=== PATIENT | male | born 1945 | race Caucasian/White ===

== ENCOUNTER 2016-08-22 20:10 | Emergency (ER) | payer MEDICARE, OTHER ==
[~2016-08-22] VITALS: Ht 177.8 cm; Wt 72.3 kg
--- OUTSIDE RECORDS SUMMARY | 2016-08-22 20:15 | XMS REPORT | Summary of Care ---
Author Author Sim Beck M.D. Organization Unknown Address Unknown Phone Unavailable Care Team Providers Care Art Objects Supervisor Name Role Phone Sim Beck M.D. Unavailable Unavailable Charo Noyola M.D. Unavailable Unavailable Sim Beck Unavailable Unavailable Functional Status Name Dates Details Functional status health issues are not documented Status: Name Dates Details Cognitive status health issues are not documented Status: Problems Name Dates Details Hearing loss (389.9, H91.90) Status: Active Xerostomia (527.7, K11.7) Status: Active RBBB (right bundle branch block) (426.4, I45.10) Status: Active DDD (degenerative disc disease) (722.6) Status: Active Asthma (493.90, J45.909) Status: Active High cholesterol (272.0, E78.00) Status: Active HTN (hypertension) (401.9, I10) Status: Active Shoulder pain, acute (719.41, M25.519) Status: Active Medications Name Dates Details Fluocinolone Acetonide 0.01 % External Solution 4 gtts to the affected ear every sunday and sunday Quantity: 1 Refills: 0 Simone Noyola M.D. Start 20-Mar-2008 Active Proventil HFA 108 (90 Base) MCG/ACT Inhalation Aerosol Solution INHALE 2 PUFFS EVERY 4-6 HOURS NEEDED. Refills: 0 Sim Beck M.D. Start Active Aspir-Low 81 MG Oral Tablet Delayed Release TAKE 1 TABLET DAILY. Refills: 0 Sim Beck M.D. Start Active Crestor 10 MG Oral Tablet 1/2 tablet twice weekly Refills: 0 Sim Beck M.D. Start 31-Jan-2016 Active Allergies and Adverse Reactions Name Dates Details Septra TABS (Allergy) Status: Active Statins (Allergy) Status: Active Viagra (Allergy) Status: Active Past Medical History Name Dates Details Upper respiratory infection (465.9, J06.9) Status: Auto Complete History of myocardial infarction (412, I25.2) Status: Resolved Procedures Procedure Dates Details Procedures not documented Immunization Name Dates Details Fluzone High-Dose 0.5 ML Intramuscular Suspension Prefilled Syringe on: 22-Feb-2016 Social History Name Dates Details - Status: Name Dates Details Never smoker Vital Signs Date Test Result Details 05-Jul-2016 09:33 BP Systolic 122 mm[Hg] Status: Comments: Location: ; Position: BP Diastolic 68 mm[Hg] Status: Comments: Location: ; Position: Heart Rate 60 /min Status: Comments: Location: ; Weight 164 lb Status: Physical Findings 98 Status: Comments: O2 Saturation Body Mass Index Calculated 22.87 kg/m2 Status: Body Surface Area Calculated 1.94 m2 Status: Results Date Description Value Details Results not documented Plan of Care Name Dates Details Planned Observations Planned Goals not documented Planned Encounters Appointment; Provider: Sim Beck M.D. On 02-Aug-2016 08:30 Instructions Name Dates Details Instructions not documented Encounters Appointment; Sim Beck M.D. Encounter Diagnosis: Problem not documented On 31-Jan-2016 08:30 Appointment; Sim Beck M.D. Encounter Diagnosis: Problem not documented On 09:55
[2016-08-22] MEDS ORDERED: ERGO2000 PO (20:42)
[2016-08-22] MEDS ORDERED: ALBU8.5H2 IH (20:42)
[2016-08-22] MEDS ORDERED: ASPI-860 PO (20:42)
[2016-08-22] MEDS ORDERED: NF-CRES10T PO (20:42)
[2016-08-22] MEDS ORDERED: MOME220A2 IH (20:42)
--- NOTE | 2016-08-22 21:15 | NUR ---
Pt's came out and said that pt is having some more difficulty breathing, checked on pt, he stated that he feels more tightness in his chest, and its more difficult to get his breath, pt does not appear to be in distress, sats 95%, on RA. DR. Paulino notified, as well as RT called to come and see pt as well
[2016-08-22] MEDS ORDERED: methylPREDNISolone 125 MG (Solu-MEDROL) VIAL IV ONE (21:30)
[2016-08-22] MEDS ORDERED: ALBUTEROL/IPRATROPIUM 3MG-0.5MG/3ML (DUONEB) NEB VIAL INH ONE (21:30)
[2016-08-22 22:04] LABS: BASOPHILS % (AUTO) 0 % (0-2); EOSINOPHILS # (AUTO) 0.5 10^3uL; EOSINOPHILS % (AUTO) 6 % (0-4); LYMPHOCYTES # (AUTO) 1.8 X10^3; MEAN CORPUSCULAR HEMOGLOBIN 30.7 PG (26.0-34.0); MEAN CORPUSCULAR VOLUME 87 FL (80-100); MEAN PLATELET VOLUME 10.5 FL (6.0-9.5); MONOCYTES # (AUTO) 0.9 X10^3; MONOCYTES % (AUTO) 11 % (3-11); NEUTROPHILS # (AUTO) 5.2 X10^3; NEUTROPHILS % (AUTO) 62 % (51-67); PLATELET COUNT 201 10^3uL (150-450); WHITE BLOOD COUNT 8.41 10^3uL (4.0-11.0)
[2016-08-22 22:17] LABS: MEAN CORPUSCULAR HGB CONC 35.5 g/dL (31.0-37.0)
[2016-08-22 22:26] LABS: ALBUMIN 4.2 g/dL (3.4-5.0); ALKALINE PHOSPHATASE 90 U/L (38-126); ANION GAP 16.2 MEQ/L (3-15); BUN/CREATININE RATIO 15 (10-20); CALCULATED IONIZED CALCIUM 3.9 mg/dL (3.8-4.6); TOTAL PROTEIN 7.3 g/dL (6.4-8.5)
--- NOTE | 2016-08-22 22:30 | NUR ---
Rounded on pt, he appears to be comfortable at this time, no complaints states that the breathing treatment did help a lot
[2016-08-23 01:03] VITALS: BP 157/87
--- NOTE | 2016-08-23 08:17 | Diagnostic Imaging Report ---
CHEST PA/LAT (2 VIEW)* Indication: Cough Comparison: None available. Findings: No focal pneumonic consolidation, pleural effusion or pneumothorax. Normal heart size and pulmonary vasculature. Impression: No acute cardiopulmonary process. Dictated by: Dictated on workstation # [id number]
== END 2016-08-23 00:50 | disposition home or self-care (01) ==
LOC: ED 20:19
DX: J30.2 Other seasonal allergic rhinitis (principal); R06.02 Shortness of breath; R07.89 Other chest pain
CPT/HCPCS: 36415; 71020; 80053; 83880; 84484; 85025; 86140; 86738; 87486; 87581; 87633; 87798; 93005; 94640; 96361; 96374; 99283; J2930; J7030; 93010; 99284

== ENCOUNTER 2016-08-26 17:12 | Emergency (ER) | payer MEDICARE, OTHER ==
[~2016-08-26] VITALS: Ht 177.8 cm; Wt 68.9 kg
[~2016-08-26 17:12] MED LIST: ALBU8.5H2 IH; ASPI-860 PO; ERGO2000 PO; MOME220A2 IH; NF-CRES10T PO
[2016-08-26] MEDS ORDERED: ALBUTEROL 0.083% NEB SOLUTION 2.5 MG/3 ML VIAL INH ONE (17:40)
[2016-08-26] MEDS ORDERED: predniSONE 20 MG (DELTASONE) TABLET PO ONE (18:30)
[2016-08-26] MEDS ORDERED: ALB0.5V INH (18:34)
[2016-08-26] MEDS ORDERED: NEBU1KIT17 MC (18:34)
[2016-08-26] MEDS ORDERED: PRED20TA PO (18:34)
[2016-08-26 18:56] VITALS: BP 135/84
--- NOTE | 2016-08-27 07:54 | Diagnostic Imaging Report ---
INDICATION: Shortness of breath. COMPARISON: 08/22/2016. FINDINGS: Stable hyperaerated lung volume. Biapical subpleural scarring is similar. No focal airspace disease. No pleural effusion or pneumothorax. Normal cardiomediastinal silhouette. Unchanged intradiscal calcification in the lower thoracic spine. IMPRESSION: 1. No acute cardiopulmonary process. Dictated by: Dictated on workstation # [id number]
--- NOTE | 2016-08-27 10:43 | NUR ---
LATE ENTRY ON 27 AUGUST 2016: [facility] Pharmacist has called to clarify order for the Albuterol Nebulizer Solution. Pt's chart pulled for Dr. Lindsay Nava (on-duty ED physician) to review. Dr. Nava changes order to the 2.5 mg/ 3 ml solution. This order relayed to [facility] Pharmacist who verbalizes understanding and denies further questions.
== END 2016-08-26 18:46 | disposition home or self-care (01) ==
LOC: ED 17:13
DX: J20.9 Acute bronchitis, unspecified (principal); B96.0 Mycoplasma pneumoniae [M. pneumoniae] as the cause of diseases classified elsewhere
CPT/HCPCS: 71020; 94640; 99282; A9270; J7613; 99283

== ENCOUNTER 2016-09-18 03:30 | Emergency (ER) | payer MEDICARE, OTHER ==
[~2016-09-18] VITALS: Ht 177.8 cm; Wt 70.6 kg
[~2016-09-18 03:30] MED LIST changes: +ALB0.5V INH; +NEBU1KIT17 MC; +PRED20TA PO
[2016-09-18] MEDS ORDERED: NF-CRES10T PO (03:50)
--- NOTE | 2016-09-18 03:52 | NUR ---
DID USE NETI POT LAST NIGHT FOR SINUS AND TOOK CLARITAN
[2016-09-18] MEDS ORDERED: methylPREDNISolone 125 MG (Solu-MEDROL) VIAL IV ONE (04:00)
[2016-09-18] MEDS ORDERED: ALBUTEROL/IPRATROPIUM 3MG-0.5MG/3ML (DUONEB) NEB VIAL INH ONE (04:00)
[2016-09-18] MEDS ORDERED: ONDANSETRON 2 MG/ML (Z0FRAN) 2 ML VIAL IV ONE (04:00)
[2016-09-18] MEDS ORDERED: HYDROmorphone 1 MG/ML (DILAUDID) SYRINGE IV ONE (04:00)
[2016-09-18] MEDS ORDERED: SODIUM CHLORIDE FLUSH 10 ML SYR IV PRN (04:15)
[2016-09-18 04:36] LABS: ALBUMIN 3.8 g/dL (3.4-5.0); ANION GAP 12.6 MEQ/L (3-15); CALCULATED IONIZED CALCIUM 4.2 mg/dL (3.8-4.6); TOTAL PROTEIN 6.8 g/dL (6.4-8.5)
[2016-09-18 04:37] LABS: MEAN CORPUSCULAR HEMOGLOBIN 30.3 PG (26.0-34.0); MEAN CORPUSCULAR HGB CONC 34.4 g/dL (31.0-37.0); MEAN CORPUSCULAR VOLUME 88 FL (80-100); MEAN PLATELET VOLUME 10.8 FL (6.0-9.5); PLATELET COUNT 202 10^3uL (150-450); WHITE BLOOD COUNT 6.15 10^3uL (4.0-11.0)
--- NOTE | 2016-09-18 04:47 | NUR ---
PATIENT NO LONGER COUGHING AT THIS TIME
[2016-09-18 04:57] LABS: EOSINOPHILS % 16 % (0-4); MONOCYTES # 0.1 #; MONOCYTES % 2 % (3-11); SEGMENTED NEUTROPHILS % 47 % (51-67)
[2016-09-18 04:58] LABS: ANISOCYTOSIS SLIGHT; BAND NEUTROPHILS % 3 % (0-6); POIKILOCYTOSIS SLIGHT; RBC MORPH SEE REFERENCE (NORMAL); TOTAL CELLS COUNTED 100
[2016-09-18] MEDS ORDERED: PRED20TA PO (05:30)
[2016-09-18] MEDS ORDERED: BENZ-13 PO (05:30)
[2016-09-18 05:33] VITALS: BP 120/97
--- NOTE | 2016-09-18 08:38 | Diagnostic Imaging Report ---
INDICATION: Cough. TECHNIQUE: Two view chest 4:25 AM CORRELATION STUDY: None FINDINGS: The heart size, mediastinal configuration and pulmonary vasculature are within normal limits. Lung apices incompletely visualized. There is what appears to be biapical pleural thickening. Lung sousa are hyperinflated with changes of COPD. Very slight markings in the right lung base along the diaphragm stable. Visualized osseous structures are unremarkable. IMPRESSION: 1. Hyperinflated lung sousa. Negative for acute abnormality. Dictated by: Dictated on workstation # [id number]
== END 2016-09-18 05:51 | disposition home or self-care (01) ==
LOC: ED 03:35
DX: J45.901 Unspecified asthma with (acute) exacerbation (principal)
CPT/HCPCS: 36415; 71020; 80053; 83880; 85025; 86140; 94640; 96374; 96375; 99283; J1170; J2405; J2930; 99282